=== PATIENT | male | born 1955 | race Caucasian/White ===

== ENCOUNTER 2018-05-11 13:39 | Emergency (ER) | payer SELFPAY ==
[~2018-05-11] VITALS: Ht 177.8 cm; Wt 106.4 kg
[2018-05-11 13:50] VITALS: Ht 177.8 cm; Wt 106.4 kg
[2018-05-11] MEDS ORDERED: COUMADIN4 MG PO (13:53)
[2018-05-11] MEDS ORDERED: ANTIVERT12.5 MG PO (13:53)
[2018-05-11] MEDS ORDERED: ULTRAM50 MG PO (13:53)
[2018-05-11] MEDS ORDERED: ASPIRIN81 MG PO (13:53)
[2018-05-11 14:18] LABS: BASOPHILS 0.5 % (0-2); EOSINOPHILS 1.5 % (0-7); HEMOGLOBIN 16.2 g/dL (13.5-17.5); IMMATURE GRANULOCYTES 0.2 % (0-5); LYMPHOCYTES 33.1 % (15-50); MCH 31.6 pg (26.0-34.0); MCHC 34.5 g/dL (31.0-37.0); MCV 91.8 fL (80.0-100.0); MEAN PLATELET VOLUME 9.4 fL (7.4-10.4); MONOCYTES 6.2 % (2-11); NEUTROPHILS 58.5 % (40-80); PLATELET COUNT 255 10x3/uL (130-400); RBC 5.12 10x6/uL (4.20-6.10); RDW 12.5 % (11.5-14.5); WBC 10.3 10x3/uL (4.8-10.8)
[2018-05-11 14:33] LABS: ALBUMIN 3.5 g/dL (3.4-5.0); ALKALINE PHOSPHATASE 54 U/L (46-116); ALT (SGPT) 29 U/L (10-68); BILIRUBIN - TOTAL 0.56 mg/dL (0.2-1.3); CALC OSMOLALITY 279 mosm/kg (275-300); CALCIUM 8.3 mg/dL (8.5-10.1); CARBON DIOXIDE 25.3 mmol/L (21.0-32.0); CHLORIDE - SERUM 104 mmol/L (98-107); CREATININE - SERUM 1.2 mg/dL (0.6-1.3); GLUCOSE 176 mg/dL (74-106); INR 2.39 (0.85-1.17); PROTEIN - SERUM 7.2 g/dL (6.4-8.2); PROTIME 25.4 SECONDS (11.6-15.0); SODIUM 138 mmol/L (136-145); UREA NITROGEN 12 mg/dL (7-18); eGFR NON AFRICAN AMERICAN 65 mL/min (90-120)
[2018-05-11 14:34] LABS: D-DIMER-QUANTITATIVE 0.44 ug/mLFEU (0.20-0.54)
[2018-05-11 14:43] LABS: CKMB 1.1 U/L (0.0-3.6); CREATINE KINASE 135 UL (21-232); LIPASE 141 U/L (73-393); TROPONIN-I < 0.017 ng/mL (0.000-0.060)
[2018-05-11 16:21] VITALS: BP 103/61
== END 2018-05-11 16:23 | disposition home or self-care (01) ==
LOC: D.ER 13:39
PROVIDERS: Family Medicine
DX: R07.89 Other chest pain (principal); R06.02 Shortness of breath; Z86.711 Personal history of pulmonary embolism; Z79.01 Long term (current) use of anticoagulants